=== PATIENT | female | born 1970 | race Two or more races ===

== ENCOUNTER → 2022-04-03 09:21 | Outpatient (CLI) | payer SELFPAY ==
--- NOTE | 2022-04-03 09:28 | US_ITS ---
FINAL REPORT CLINICAL HISTORY: DYSMONORRHEA FINDINGS: Transvaginal sonographic images of the pelvis were obtained. The uterus measures 7.6 x 5.2 x 3.4 cm. The endometrium measures 2 mm, which is within normal limits. There are multiple uterine masses measuring up to 1.7 cm consistent with multiple uterine fibroids. The right ovary measures 2.3 cm in length and left ovary measures 2.2 cm in length. Normal blood flow seen to the ovaries. There is no evidence of free fluid. IMPRESSION: Multiple uterine fibroids. Reviewed, Interpreted and Dictated by Neil Turner III, MD Transcribed by Dana Blas Authenticated and . [facility]
== END ==
LOC: RAD 09:23
PROVIDERS: PCP Nurse Practitioner Family; Visit Provider Nurse Practitioner Family
DX: R10.32 Left lower quadrant pain (principal)
CPT/HCPCS: 76830